=== PATIENT | male | born 1995 | race Caucasian/White ===

== ENCOUNTER 2020-03-13 15:40 | Inpatient (IN) | payer OTHER ==
[~2020-03-13] VITALS: Ht 185.4 cm; Wt 78.5 kg
[~2020-03-13 15:40] MED LIST: AMOXICILLIN500 M2 PO; BACTRIM DS 8001 TA1 PO; CARAFATE1 G1 PO; CEPHALEXIN500 M1 PO; KEFLEX500 MG PO; MOTRIN600 MG PO; Motrin,Rufen800 MG PO; OMEPRAZOLE20 MG PO; ZOFRAN ODT8 MG PO; ZOFRAN4 MG PO
[2020-03-13 15:51] VITALS: BP 132/74
[2020-03-13 16:15] LABS: BASO # 0.1 10*3/uL (0.0-0.1); BASO % 0.6 % (0.0-1.0); EOS # 0.3 10*3/uL (0.0-0.4); EOS % 3.2 % (1.0-4.0); HEMATOCRIT 41.4 % (42.0-52.0); LYMPH # 1.8 10*3/uL (1.3-4.4); LYMPH % 18.7 % (27.0-41.0); MEAN CELL VOLUME 91.4 fl (80.0-94.0); MEAN CORPUSCULAR HGB 30.2 pg (27.0-31.0); MEAN CORPUSCULAR HGB CONC 33.1 g/dl (33.0-37.0); MEAN PLATELET VOLUME 10.2 fl (9.6-12.3); MONO # 0.7 10*3/uL (0.1-1.0); MONO % 7.5 % (3.0-9.0); NEUT # 6.8 10*3/uL (2.3-7.9); NEUT % 69.8 % (47.0-73.0); PLATELET COUNT AUTOMATED 295 10*3/uL (130-400); RED BLOOD COUNT 4.53 10*6/uL (4.50-5.90); RED CELL DISTRI WIDTH 13.2 % (0-14.5); WHITE BLOOD COUNT 9.8 10*3/uL (4.8-10.8)
[2020-03-13 16:30] LABS: ALBUMIN 3.9 gm/dl (3.1-4.5); ALKALINE PHOSPHATASE 63 U/L (45-117); BUN 8 mg/dl (7-24); CHLORIDE 109 mmol/L (98-107); POTASSIUM 3.6 mmol/L (3.5-5.1); SGOT/AST 35 IU/L (3-35); SGPT/ALT 77 U/L (12-78); SODIUM 139 mmol/L (136-145); TOTAL PROTEIN 7.7 gm/dL (6.4-8.2)
[2020-03-13 16:45] VITALS: BP 114/63
[2020-03-13] MEDS ORDERED: PRILOSEC20 M1 PO (17:14)
[2020-03-13 19:02] LABS: BACTERIA TRACE; BILIRUBIN NEGATIVE (NEGATIVE); BLOOD NEGATIVE (NEGATIVE); CLARITY SL CLOUDY (CLEAR); COLOR YELLOW (YELLOW); GLUCOSE NEGATIVE (NEGATIVE); KETONE NEGATIVE (NEGATIVE); LEUKO ESTERASE NEGATIVE (NEGATIVE); MUCOUS 1+; NITRITE NEGATIVE (NEGATIVE); SPECIFIC GRAVITY 1.025 (1.005-1.030); UROBILINOGEN 0.2 E.U./dl (0.2-1.0); WBC 0-2 wbc/hpf (0-5)
[2020-03-13 19:04] LABS: URINE AMPHETAMINES < 1000 (1000ng/ml); URINE BARBITURATES < 200 (200ng/ml); URINE BENZODIAZEPINES < 200 (200ng/ml); URINE CANNABINOIDS (THC) > 50 (50ng/ml); URINE COCAINE > 300 (300ng/ml); URINE METHADONE < 300 (300ng/ml); URINE OPIATES > 300 (300ng/ml); URINE PHENCYCLIDINE < 25 (25ng/ml)
[2020-03-13 20:00] VITALS: BP 122/77
[2020-03-14] VITALS: BP 128/66
[2020-03-14 08:00] VITALS: BP 112/66
[2020-03-14 16:00] VITALS: BP 110/55
== END 2020-03-14 19:51 | disposition left against medical advice (07) | DRG 770 ==
LOC: ED 15:40 → 4E 16:08 → EDHOLD 16:08 → 4E 16:23
PROVIDERS: Nurse Practitioner Family; ADMIT Family Medicine
DX: F11.23 Opioid dependence with withdrawal (principal); D64.9 Anemia, unspecified; F41.9 Anxiety disorder, unspecified; F17.210 Nicotine dependence, cigarettes, uncomplicated; K21.9 Gastro-esophageal reflux disease without esophagitis; E87.8 Other disorders of electrolyte and fluid balance, not elsewhere classified; Z53.29 Procedure and treatment not carried out because of patient's decision for other reasons; Z71.6 Tobacco abuse counseling; Z88.1 Allergy status to other antibiotic agents; Z79.899 Other long term (current) drug therapy

== ENCOUNTER 2022-02-10 19:22 | Emergency (ER) | payer OTHER ==
[~2022-02-10] VITALS: Wt 72.6 kg
[~2022-02-10 19:22] MED LIST changes: +PRILOSEC20 M1 PO
[2022-02-10 20:12] LABS: BASO % 0.2 % (0.0-1.0); EOS % 0.6 % (1.0-4.0); HEMATOCRIT 36.9 % (42.0-52.0); LYMPH # 0.4 10*3/uL (1.3-4.4); LYMPH % 8.4 % (27.0-41.0); MEAN CELL VOLUME 88.9 fl (80.0-94.0); MEAN PLATELET VOLUME 11.3 fl (9.6-12.3); MONO # 0.3 10*3/uL (0.1-1.0); MONO % 6.7 % (3.0-9.0); NEUT # 4.3 10*3/uL (2.3-7.9); NEUT % 84.1 % (47.0-73.0); PLATELET COUNT AUTOMATED 85 10*3/uL (130-400); RED BLOOD COUNT 4.15 10*6/uL (4.50-5.90); RED CELL DISTRI WIDTH 12.7 % (0-14.5); WHITE BLOOD COUNT 5.1 10*3/uL (4.8-10.8)
[2022-02-10 20:22] LABS: BILIRUBIN 2+ (Negative); BLOOD Negative (Negative); CLARITY Clear (Clear); COLOR Dark Yellow (Yellow); GLUCOSE Negative (Negative); KETONE Trace (Negative); LEUKO ESTERASE 2+ (Negative); NITRITE Positive (Negative); PH 7.5 (4.5-8.0)
[2022-02-10 20:27] LABS: ALKALINE PHOSPHATASE 91 U/L (45-117); BUN 10 mg/dl (7-24); CHLORIDE 105 mmol/L (98-107); CPK 568 U/L (39-308); CREATININE 1.05 mg/dL (0.70-1.30); POTASSIUM 3.3 mmol/L (3.5-5.1); SGOT/AST 268 IU/L (3-35); SGPT/ALT 173 U/L (12-78); SODIUM 137 mmol/L (136-145); TOTAL PROTEIN 7.9 gm/dL (6.4-8.2)
[2022-02-10 20:29] LABS: URINE AMPHETAMINES < 1000 (1000ng/ml); URINE BARBITURATES < 200 (200ng/ml); URINE BENZODIAZEPINES < 200 (200ng/ml); URINE CANNABINOIDS (THC) > 50 (50ng/ml); URINE COCAINE < 300 (300ng/ml); URINE METHADONE < 300 (300ng/ml); URINE OPIATES < 300 (300ng/ml)
[2022-02-10 20:30] LABS: URINE PHENCYCLIDINE < 25 (25ng/ml)
[2022-02-10 20:30] LABS: ETHYL ALCOHOL < 3.0 mg/dl (<3)
[2022-02-10 20:31] LABS: WBC 31-40 wbc/hpf (0-5)
[2022-02-10 20:32] LABS: BACTERIA 2+; MUCOUS 2+
[2022-02-10 20:34] LABS: ACETAMINOPHEN (TYLENOL) < 5.0 ug/ml (10-30)
[2022-02-10 21:27] LABS: INTERNATIONAL NORM RATIO 1.3 (2.0-3.5)
== END 2022-02-11 20:01 ==
LOC: ED 19:22
PROVIDERS: Emergency Medicine
DX: F31.9 Bipolar disorder, unspecified (principal); Z20.822 Contact with and (suspected) exposure to COVID-19